=== PATIENT | male | born 1955 | race Caucasian/White ===

== ENCOUNTER 2019-10-03 09:34 | Emergency (ER) | payer OTHER ==
[2019-10-03] MEDS ORDERED: Sodium Chloride 0.9% 10 ML Syringe FLUSH PRN (09:51)
--- NOTE | 2019-10-03 09:58 | EDM.PDOC ---
ED HPI GENERAL MEDICAL PROBLEM - General Chief Complaint: General Stated Complaint: POSSIBLE STROKE Time Seen by Provider: 10/03/19 09:48 Source of Information: Reports: Patient, Family, RN History Limitations: Reports: No Limitations - History of Present Illness INITIAL COMMENTS - FREE TEXT/NARRATIVE: 64 yo male presents with left sided weakness, started yesterday am at home. He is alert, oriented and follows commands. He does have continued left upper arm weakness, speech is good. Hx of stroke about 8 years ago with left sided weakenss. He has been ambulatory at home. 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 BP 167/110. States he did take his medications today. He does have a hx of COPD, oxygen use prn at home, and uses inhalers at home. He is a Vet and PCP is at the [facility]. family contacted [facility] and instructed to present to nearest ER. Pt did take an extra Aggrenox yesterday. His significant other is with him today. 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 (see below) Other Treatments LICENSED CLUB MANAGER: additional aggrenox pill yesterday - Related Data Allergies Allergy/AdvReac Type Severity Reaction Status Date / Time Enviromental Allergy Unknown Uncoded 10/03/19 10:03 Home Meds: Home Meds Albuterol Sulfate [Albuterol Sulfate Hfa] 1 gm INH ASDIRECTED PRN 10/03/19 [ History] Albuterol/Ipratropium [Combivent Respimat] 4 gm IH ASDIRECTED PRN 10/03/19 [ History] Alfuzosin HCl [Alfuzosin HCl ER] 10 mg PO DAILY 10/03/19 [History] Aspirin/Dipyridamole [Aggrenox 200-25 MG] 1 mg PO BID 10/03/19 [History] Finasteride 5 mg PO DAILY 10/03/19 [History] Metoprolol Succinate 25 mg PO DAILY 10/03/19 [History] Past Medical History Cardiovascular History: Reports: Hypertension Respiratory History: Reports: COPD Gastrointestinal History: Reports: None Genitourinary History: Reports: Other (See Below) Other Genitourinary History: Had hx of stones? Musculoskeletal History: Reports: None Neurological History: Reports: Other (See Below) Other Neuro History: Stroke in 2011 Psychiatric History: Reports: None Endocrine/Metabolic History: Reports: None Oncologic (Cancer) History: Reports: None - Infectious Disease History Infectious Disease History: Reports: Chicken Pox, Measles, Mumps - Past Surgical History GI Surgical History: Reports: Colonoscopy Social & Family History - Caffeine Use Caffeine Use: Reports: Coffee, Soda, Tea ED ROS GENERAL - Review of Systems Review Of Systems: See Below Constitutional: Reports: Weakness. Denies: Fever, Chills HEENT: Reports: Other (yesterday facial droopiness) Respiratory: Reports: Cough. Denies: Shortness of Breath, Sputum Cardiovascular: Denies: Chest Pain GI/Abdominal: Denies: Abdominal Pain, Constipation, Diarrhea, Nausea Musculoskeletal: Reports: Other (left UE weakness, lower extremity weakness yesterday, improved.) Skin: Denies: Bruising, Rash, Erythema Neurological: Reports: Weakness Psychiatric: Reports: No Symptoms ED EXAM, NEURO - Physical Exam Exam: See Below Exam Limited By: No Limitations General Appearance: Alert, No Apparent Distress Eye Exam: Bilateral Eye: PERRL Ears: Hearing Grossly Normal Throat/Mouth: Normal Oropharynx, Normal Voice, No Airway Compromise Head Exam: Atraumatic, Normocephalic Neck: Supple, Non-Tender Respiratory/Chest: Lungs Clear, Normal Breath Sounds Cardiovascular: Regular Rate, Rhythm, No Edema GI/Abdominal: Soft, Non-Tender Neurological: Alert, Normal Mood/Affect, Oriented x 3, Straight Leg Raise (L), Straight Leg Raise (R) Back Exam: No: Decreased Range of Motion, Paraspinal Tenderness, Vertebral Tenderness Extremities: Normal Inspection, Non-Tender, No Pedal Edema Psychiatric: Normal Affect, Normal Mood Skin Exam: Warm, Dry, Normal Color EKG INTERPRETATION EKG Date: 10/03/19 Rhythm: NSR Course - Vital Signs Last Recorded V/S: Last Vital Signs Temp 97.5 F 10/03/19 09:40 Pulse 77 10/03/19 11:35 Resp 17 10/03/19 10:10 BP 165/111 H 10/03/19 11:35 Pulse Ox 98 10/03/19 11:35 - Orders/Labs/Meds Orders: Active Orders 24 hr Category Date Time Status EKG Documentation Completion [RC] ASDIRECTED Care 10/03/19 09:52 Active UA RFX RAÚL AND CULT IF INDIC [URIN] Stat Lab 10/03/19 09:51 Ordered Saline Lock Insert [OM.PC] Routine Oth 10/03/19 09:51 Ordered Labs: Laboratory Tests 10/03/19 10/03/19 10/03/19 Range/Units 10:20 10:20 10:20 WBC 4.1 (4.0-11.0) K/uL RBC 4.39 L (4.50-6.50) M/uL Hgb 14.8 (13.0-18.0) g/dL Hct 42.5 (40.0-54.0) % MCV 97 H (76-96) fL MCH 33.7 H (27.0-32.0) pg MCHC 34.8 (31.0-35.0) g/dL RDW 12.1 (11.0-16.0) % Plt Count 216 (150-400) K/uL MPV 9.2 (6.0-10.0) fL Neut % (Auto) 52.9 (45.0-70.0) % Lymph % (Auto) 32.1 (20.0-40.0) % [place] % (Auto) 12.6 H (3.0-10.0) % Eos % (Auto) 1.9 (1.0-5.0) % Baso % (Auto) 0.5 (0.0-0.5) % Neut # (Auto) 2.19 (2.00-7.50) K/uL Lymph # (Auto) 1.33 L (1.50-4.00) K/uL [place] # (Auto) 0.52 (0.20-0.80) K/uL Eos # (Auto) 0.08 (0.04-0.40) K/uL Baso # (Auto) 0.02 (0.02-0.10) K/uL PT 9.9 (9.0-11.5) sec INR 1.0 (1.0-3.5) Sodium 139 (136-145) mmol/L Potassium 4.0 (3.5-5.1) mmol/L Chloride 101 (98-107) mmol/L Carbon Dioxide 27.6 (21.0-32.0) mmol/L Anion Gap 14.4 (5.0-15.0) mmol/L BUN 9 (8-26) mg/dL Creatinine 1.11 (0.70-1.30) mg/dL Est Cr Clr Drug Dosing 88.54 mL/min Estimated GFR (MDRD) > 60 (>60) MLS/MIN BUN/Creatinine Ratio 8.1 (6-25) Glucose 120 H (74-100) mg/dL Calcium 8.5 (8.5-10.1) mg/dL Total Bilirubin 0.6 (0.0-1.0) mg/dL AST 30 (15-37) U/L ALT 39 (12-78) U/L Alkaline Phosphatase 65 (46-116) U/L Troponin I < 0.017 (0.000-0.060) ng/mL C-Reactive Protein (0.0-3.0) mg/L Total Protein 7.0 (6.4-8.2) g/dL Albumin 3.8 (3.4-5.0) g/dL Globulin 3.2 (2.2-4.2) g/dL Albumin/Globulin Ratio 1.2 (0.8-2.0) TSH, Ultra Sensitive 1.354 (0.358-3.740) uIU/mL 10/03/19 Range/Units 10:20 WBC (4.0-11.0) K/uL RBC (4.50-6.50) M/uL Hgb (13.0-18.0) g/dL Hct (40.0-54.0) % MCV (76-96) fL MCH (27.0-32.0) pg MCHC (31.0-35.0) g/dL RDW (11.0-16.0) % Plt Count (150-400) K/uL MPV (6.0-10.0) fL Neut % (Auto) (45.0-70.0) % Lymph % (Auto) (20.0-40.0) % [place] % (Auto) (3.0-10.0) % Eos % (Auto) (1.0-5.0) % Baso % (Auto) (0.0-0.5) % Neut # (Auto) (2.00-7.50) K/uL Lymph # (Auto) (1.50-4.00) K/uL [place] # (Auto) (0.20-0.80) K/uL Eos # (Auto) (0.04-0.40) K/uL Baso # (Auto) (0.02-0.10) K/uL PT (9.0-11.5) sec INR (1.0-3.5) Sodium (136-145) mmol/L Potassium (3.5-5.1) mmol/L Chloride (98-107) mmol/L Carbon Dioxide (21.0-32.0) mmol/L Anion Gap (5.0-15.0) mmol/L BUN (8-26) mg/dL Creatinine (0.70-1.30) mg/dL Est Cr Clr Drug Dosing mL/min Estimated GFR (MDRD) (>60) MLS/MIN BUN/Creatinine Ratio (6-25) Glucose (74-100) mg/dL Calcium (8.5-10.1) mg/dL Total Bilirubin (0.0-1.0) mg/dL AST (15-37) U/L ALT (12-78) U/L Alkaline Phosphatase (46-116) U/L Troponin I (0.000-0.060) ng/mL C-Reactive Protein 1.8 (0.0-3.0) mg/L Total Protein (6.4-8.2) g/dL Albumin (3.4-5.0) g/dL Globulin (2.2-4.2) g/dL Albumin/Globulin Ratio (0.8-2.0) TSH, Ultra Sensitive (0.358-3.740) uIU/mL Meds: Medications Discontinued Medications Generic Name Dose Route Start Last Admin Trade Name Freq PRN Reason Stop Dose Admin Sodium Chloride 1,000 mls @ 125 mls/hr 10/03/19 12:30 10/03/19 11:50 Normal Saline IV 125 mls/hr ASDIRECTED JESSICA Administration Labetalol HCl 20 mg 10/03/19 11:25 10/03/19 12:44 Normodyne IVPUSH 10/03/19 11:26 Not Given ONETIME ONE Protocol Sodium Chloride 10 ml 10/03/19 09:51 Saline Flush FLUSH ASDIRECTED PRN Keep Vein Open - Re-Assessments/Exams Free Text/Narrative Re-Assessment/Exam: 10/03/19 10:38 CT with focal parenchymal hemorrhage centered within right lentiform nucleus. left upper extremity weakness. Pt is alert and talkative. Contact to [facility] for transport for neurology. [place], recommend to transport to [facility]. [place] states ER visit, transport and [facility] visit is covered. [facility] to transfer pt to ER, [facility] Neurology recommends use of Nicardipine or Labetalol for BP control. CT results pushed to [place]. Pt has remained alert, talkative, GSC 15 with mild left UE weakness. [facility] at site and Nicardipine IV given X 1. Nacl IV fluids started. Departure - Departure Time of Disposition: 11:40 Disposition: DC/Tfer to Acute Hospital 02 Clinical Impression: Cerebral parenchymal hemorrhage, COPD (chronic obstructive pulmonary disease) - Discharge Information *PRESCRIPTION DRUG MONITORING PROGRAM REVIEWED*: Not Applicable *COPY OF PRESCRIPTION DRUG MONITORING REPORT IN PATIENT MARTIN: Not Applicable Referrals: PCP,None [Primary Care Provider] - Forms: ED Department Discharge Sepsis Event Note - Evaluation Sepsis Screening Result: No Definite Risk - Focused Exam Vital Signs: Vital Signs Pulse BP Pulse Ox 10/03/19 11:35 77 165/111 H 98 10/03/19 10:30 143 H Date Exam was Performed: 10/03/19 Time Exam was Performed: 22:12 - My Orders Last 24 Hours: My Active Orders 10/03/19 09:51 UA RFX RAÚL AND CULT IF INDIC [URIN] Stat Saline Lock Insert [OM.PC] Routine 10/03/19 09:52 EKG Documentation Completion [RC] ASDIRECTED - Assessment/Plan Last 24 Hours: My Active Orders 10/03/19 09:51 UA RFX RAÚL AND CULT IF INDIC [URIN] Stat Saline Lock Insert [OM.PC] Routine 10/03/19 09:52 EKG Documentation Completion [RC] ASDIRECTED Plan: Transfer by [facility] to [place], [place] and approved per [facility]. Consult with neurology and accepting of pt. CT pushed to [place], [place]. Pt in no acute distress.
--- NOTE | 2019-10-03 11:11 | CT ---
Date of Service: 10/03/19 Clinical Data: weakness left side UNENHANCED BRAIN CT: Multislice acquisition through the brain without IV contrast was performed. Comparison is made to a prior exam dated 12/22/11. There is acute parenchymal hemorrhage noted within the right basal ganglia. It measures 3.6 cm in its maximum dimension. There is minimal adjacent edema and mild mass effect. No other acute abnormalities. IMPRESSION: Acute intracranial hemorrhage. The patient's physician was notified of the finding by telephone and by [facility] preliminary radiology report. [id number] MTDD
--- NOTE | 2019-10-03 11:28 | CR ---
DATE OF SERVICE: 10/03/19 CLINICAL DATA: COPD. AP CHEST: Comparison is made to a prior exam dated 12/30/17. The heart size is normal. The lungs are clear. No pneumothorax. No pleural effusions. No changes from the prior exam. No evidence of acute intrathoracic disease. [id number] MTDD
[2019-10-03] MEDS: Sodium Chloride 0.9% 1,000 ML IV SCH (11:50)
[2019-10-03] MEDS: Labetalol 100 MG/20 ML MDV IVPUSH ONE (12:44)
== END 2019-10-03 11:55 ==
LOC: LB.ED 09:34
DX: I61.9 Nontraumatic intracerebral hemorrhage, unspecified (principal); G83.24 Monoplegia of upper limb affecting left nondominant side; R40.2412 Glasgow coma scale score 13-15, at arrival to emergency department; J44.9 Chronic obstructive pulmonary disease, unspecified; I10 Essential (primary) hypertension; Z79.899 Other long term (current) drug therapy; Z91.09 Other allergy status, other than to drugs and biological substances; Z79.82 Long term (current) use of aspirin
CPT/HCPCS: 36415; 70450; 71045; 80053; 84443; 84484; 85025; 85610; 86140; 93005; 99285-25; J3490; J7030

== ENCOUNTER 2019-12-23 14:32 | Emergency (ER) | payer OTHER ==
--- NOTE | 2019-12-23 15:01 | EDM.PDOC ---
ED HPI GENERAL MEDICAL PROBLEM - General Chief Complaint: General Stated Complaint: POSSIBLE SHINGLES Time Seen by Provider: 12/23/19 14:45 Source of Information: Reports: Patient History Limitations: Reports: No Limitations - History of Present Illness INITIAL COMMENTS - FREE TEXT/NARRATIVE: This is a 64yo M here for a new rash of the right side and back. He was told it was shingles but has had a shingles vaccination. He denies any other issues but states the rash feels off and he feels funny. No chest pain or shortness of breath. Onset: Gradual Duration: Day(s): Location: Reports: Chest, Abdomen, Back Quality: Reports: Same as Previous Episode Severity: Mild Improves with: Reports: None Worsens with: Reports: None Associated Symptoms: Reports: No Other Symptoms Thoracic Pain Score (Numeric/FACES): 4 - Related Data Allergies Allergy/AdvReac Type Severity Reaction Status Date / Time Enviromental Allergy Unknown Uncoded 10/03/19 10:03 Home Meds: Home Meds Albuterol Sulfate [Albuterol Sulfate Hfa] 1 gm INH ASDIRECTED PRN 10/03/19 [ History] Albuterol/Ipratropium [Combivent Respimat] 4 gm IH ASDIRECTED PRN 10/03/19 [ History] Alfuzosin HCl [Alfuzosin HCl ER] 10 mg PO DAILY 10/03/19 [History] Aspirin/Dipyridamole [Aggrenox 200-25 MG] 1 mg PO BID 10/03/19 [History] Finasteride 5 mg PO DAILY 10/03/19 [History] Metoprolol Succinate 25 mg PO DAILY 10/03/19 [History] valACYclovir HCl [Valacyclovir] 1,000 mg PO Q8HR #21 tablet 12/23/19 [Rx] Past Medical History Cardiovascular History: Reports: Hypertension Respiratory History: Reports: COPD Gastrointestinal History: Reports: None Genitourinary History: Reports: Other (See Below) Other Genitourinary History: Had hx of stones? Musculoskeletal History: Reports: None Neurological History: Reports: Other (See Below) Other Neuro History: Stroke in 2011 Psychiatric History: Reports: None Endocrine/Metabolic History: Reports: None Oncologic (Cancer) History: Reports: None - Infectious Disease History Infectious Disease History: Reports: Chicken Pox, Measles, Mumps - Past Surgical History GI Surgical History: Reports: Colonoscopy Social & Family History - Caffeine Use Caffeine Use: Reports: Coffee, Soda, Tea Other Caffeine Use: coffee - 3/d. pop - 3-4 cans/d ED ROS GENERAL - Review of Systems Review Of Systems: Comprehensive ROS is negative, except as noted in HPI. ED EXAM, GENERAL - Physical Exam Exam: See Below Exam Limited By: No Limitations General Appearance: Alert, WD/WN, No Apparent Distress Eye Exam: Bilateral Eye: PERRL Ears: Normal External Exam Ear Exam: Bilateral Ear: Auricle Normal, Canal Normal Nose: Normal Inspection Throat/Mouth: Normal Inspection Head: Atraumatic, Normocephalic Neck: Normal Inspection Respiratory/Chest: No Respiratory Distress, Lungs Clear, Normal Breath Sounds Cardiovascular: Normal Peripheral Pulses, Regular Rate, Rhythm GI/Abdominal: Normal Bowel Sounds Skin Exam: Rash (over back and chest wall dermatome distribution on right T5 distribution) Course - Vital Signs Last Recorded V/S: Last Vital Signs Temp 36.9 C 12/23/19 14:51 Pulse 117 H 12/23/19 14:51 Resp 20 12/23/19 14:51 BP 152/104 H 12/23/19 14:51 Pulse Ox 96 12/23/19 14:51 Departure - Departure Time of Disposition: 15:10 Disposition: Home, Self-Care 01 Condition: Good Clinical Impression: Shingles rash Qualifiers: Herpes zoster complications: without complications Qualified Code(s): B02.9 - Zoster without complications - Discharge Information Prescriptions: valACYclovir HCl [Valacyclovir] 1,000 mg PO Q8HR #21 tablet Instructions: Shingles, [id number] Referrals: PCP,None [Primary Care Provider] - Forms: ED Department Discharge Additional Instructions: Discharge home. Very contagious, use good hand hygiene. Valacyclovir Prescription sent over to [facility]. Call or return to the ER if you have any questions or concerns. Sepsis Event Note - Evaluation Sepsis Screening Result: No Definite Risk - Focused Exam Vital Signs: Vital Signs Temp Pulse Resp BP Pulse Ox 12/23/19 14:51 36.9 C 117 H 20 152/104 H 96 12/23/19 14:38 36.9 C 117 H 20 152/104 H 96 Date Exam was Performed: 12/23/19 Time Exam was Performed: 17:33 - Problem List & Annotations (1) Shingles rash SNOMED Code(s): 4759853 Code(s): B02.9 - ZOSTER WITHOUT COMPLICATIONS Status: Acute Priority: High Qualifiers: Herpes zoster complications: without complications Qualified Code(s): B02.9 - Zoster without complications - Problem List Review Problem List Initiated/Reviewed/Updated: Yes - Assessment/Plan Plan: Counseled on antiviral medication use and side effects. Discussed f/u if symptoms persist or worsen. Discussed further management as needed and for f/u with PCP. Patient agrees to f/u if any concerns.
== END 2019-12-23 14:50 | disposition home or self-care (01) ==
LOC: LB.ED 14:32
DX: B02.9 Zoster without complications (principal); J44.9 Chronic obstructive pulmonary disease, unspecified; I10 Essential (primary) hypertension; Z79.899 Other long term (current) drug therapy
CPT/HCPCS: 99282

== ENCOUNTER 2024-05-09 08:17 | Emergency (ER) | payer OTHER ==
[2024-05-09] MEDS ORDERED: Sodium Chloride 0.9% 10 ML Syringe FLUSH PRN (09:04)
[2024-05-09] MEDS: GI Cocktail Oral Solution 30 ML PO ONE (09:47)
[2024-05-09 09:53] LABS: HEMATOCRIT 40.8 % (40.0-54.0); HEMOGLOBIN 13.9 g/dL (13.0-18.0); MEAN CORPUSCULAR HEMOGLOBIN 33.3 pg (27.0-32.0); MEAN CORPUSCULAR HGB CONC 34.1 g/dL (31.0-35.0); MEAN PLATELET VOLUME 9.4 fL (6.0-10.0); RED BLOOD CELL COUNT 4.17 M/uL (4.50-6.50); RED CELL DISTRIBUTION WIDTH 12.2 % (11.0-16.0)
[2024-05-09 10:26] LABS: A/G RATIO 1.3 (0.8-2.0); ALBUMIN 3.8 g/dL (3.4-5.0); ANION GAP 11.6 mmol/L (5.0-15.0); BILIRUBIN TOTAL 0.5 mg/dL (0.0-1.0); BUN/CREATININE RATIO 12.3 (6-25); CALCIUM 8.9 mg/dL (8.5-10.1); CREATININE 0.81 mg/dL (0.70-1.30); EST CRCL DRUG DOSING (CG) 113.55 mL/min; MAGNESIUM 1.7 mg/dL (1.8-2.4); POTASSIUM,K 3.6 mmol/L (3.5-5.1); PROTEIN TOTAL,TP 6.8 g/dL (6.4-8.2); TROPONIN I HIGH SENSITIVITY 6.3 pg/ml (<=60.4)
[2024-05-09 10:36] LABS: INFLUENZA A NAA NEGATIVE (NEGATIVE); INFLUENZA B NAA NEGATIVE (NEGATIVE); RESPIRATORY SYNCYTIAL VIR NAA NEGATIVE (NEGATIVE)
[2024-05-09 10:43] LABS: CORONAVIRUS COVID-19 NAA POSITIVE (NEGATIVE)
[2024-05-09 11:57] VITALS: BP 175/98; PULSE 102
== END 2024-05-09 11:03 | disposition home or self-care (01) ==
LOC: LB.ED 08:17
DX: U07.1 COVID-19 (principal); J44.9 Chronic obstructive pulmonary disease, unspecified; I10 Essential (primary) hypertension; Z87.891 Personal history of nicotine dependence; Z79.899 Other long term (current) drug therapy; Z91.048 Other nonmedicinal substance allergy status
CPT/HCPCS: 0241U; 36415; 71045; 80053; 83735; 83880; 84484; 85027; 85379; 93005; 93010; 99284; 99285; A9270-GY